=== PATIENT | male | born 1955 | race Caucasian/White ===

== ENCOUNTER 2016-05-31 20:44 | Emergency (ER) | payer SELFPAY ==
[2016-05-31 20:32] LABS: BASOPHIL# 0.1 X10e3 (0-0.3); BASOPHIL% 0.6 % (0-2.5); EOSINOPHIL# 0.2 X10e3 (0-0.7); EOSINOPHIL% 1.2 % (0.0-7.0); LYMPHOCYTE# 1.3 X10e3 (1.0-3.5); MEAN CELL VOLUME 98.9 FL (83-96); MEAN CORPUSCULAR HEMOGLOBIN 32.9 PG (28-34); MEAN CORPUSCULAR HGB CONC 33.3 g/dL (30-36); MONOCYTE# 0.8 X10e3 (0-1.0); NEUTROPHIL% 85.2 % (40-75); PLATELET COUNT 205 X10e3 (140-420); RED BLOOD COUNT 4.25 X10e (3.90-5.60); RED CELL DISTRIBUTION WIDTH 13.3 % (11.0-15.5); WHITE BLOOD COUNT 16.4 X10e3 (4.0-10.5)
[2016-05-31 20:35] LABS: DIFF IND YES
[~2016-05-31 20:44] MED LIST: ALBUTEROL17 GM; AMLODIPINE BESY10 MG PO; FLONASE 0.05% N16 G1; LISINOPRIL10 MG PO; OMEPRAZOLE40 MG PO; PEPCID AC20 M2 PO; ZOFRAN ODT4 MG PO; [UNRECOGNIZED DRUG - REMARK]
[2016-05-31 20:45] LABS: PLATELET ESTIMATE NORMAL (NORMAL); RBC NORMAL YES; TOXIC GRANULATION SL
[2016-05-31 20:49] LABS: ALBUMIN SERUM 4.3 g/dL (3.5-5.0); BILIRUBIN, DIRECT 0.1 mg/dL (0.0-0.2); BILIRUBIN,INDIRECT 0.6 mg/dL (0.0-0.9); BILIRUBIN,TOTAL 0.7 mg/dL (0.2-2.0); CALCIUM SERUM 8.7 mg/dL (8.4-10.2); CREATININE SERUM 0.8 mg/dL (0.6-1.4); GLOM FILT RATE Estimated 96.5 mL/min (>60); POTASSIUM 3.1 mmol/L (3.5-5.1); PROTEIN TOTAL SERUM 7.2 g/dL (6.0-8.3)
[2016-05-31 22:09] LABS: URINE SOURCE CLEAN CATCH
[2016-05-31 22:15] LABS: URINE APPEARANCE CLEAR; URINE BILIRUBIN NEG (NEG); URINE BLOOD NEG (NEG); URINE COLOR YELLOW; URINE GLUCOSE NEG (NEG); URINE KETONE TRACE (NEG); URINE LEUKOCYTE ESTERASE NEG (NEG); URINE NITRATE NEG (NEG); URINE PH 7.5 (5-8); URINE PROTEIN NEG (NEG); URINE SPECIFIC GRAVITY 1.009 (1.003-1.035); URINE UROBILINOGEN 0.2 MG/DL (NEG)
[2016-05-31 22:19] LABS: CULTURE INDICATED? NO
[2016-09-11] MEDS ORDERED: ALBUTEROL17 GM INH (07:59)
[2016-09-11] MEDS ORDERED: AMLODIPINE BES2.5 MG PO (10:40)
== END 2016-05-31 21:35 | disposition home or self-care (01) ==
LOC: CED 20:44
PROVIDERS: Emergency Medicine
DX: R11.2 Nausea with vomiting, unspecified (principal); R10.13 Epigastric pain; K59.00 Constipation, unspecified; I10 Essential (primary) hypertension; J44.9 Chronic obstructive pulmonary disease, unspecified; F17.210 Nicotine dependence, cigarettes, uncomplicated
CPT/HCPCS: 36415; 80048; 80076; 81003; 82150; 83690; 85025; 96374; 96375; 99284; J2405

== ENCOUNTER → 2016-09-11 | Day surgery (SDC) | payer BC ==
[~2016-09-11] MED LIST changes: +ALBUTEROL17 GM INH; +AMLODIPINE BES2.5 MG PO
--- NOTE | ~2016-09-11 | OR ---
Unit #: [id number] #: [id number] Patient: CORDELL FRAUSTO [id number] [address] [place], [place] [address] [id number] MR#: [id number] NAME: CORDELL FRAUSTO. ROOM: Date of Procedure: 09/11/2016 Admission Date: 09/11/2016 Surgeon: Kaushik Peoples M.D. : 1955 Attending Physician: Kaushik Peoples M.D. Primary Care Physician: Cosmo Rdz M.D. OPERATIVE REPORT PROCEDURES PERFORMED Colonoscopy with snare polypectomy. INDICATIONS FOR PROCEDURE Average risks for colorectal cancer. MEDICATIONS Monitored anesthesia. POSTOPERATIVE FINDINGS 1. Polyp, 5 mm rectum, snared and sent for histopathology. 2. Rest of the colon to cecum was normal. PLAN Repeat colonoscopy in 5 years if adenomatous. DESCRIPTION OF PROCEDURE The patient was explained of the procedure, risks, and benefits along with the risks and benefits of anesthesia. He was brought to the endoscopy room. Propofol anesthesia was given. Rectal exam was done, which was normal. Colonoscope was lubricated, passed up the rectum, advanced under direct vision all the way to the cecum. Cecum was identified by ileocecal valve and appendiceal orifice. Careful examination was done. Polyp seen in rectum was snared and sent for histopathology. I retroflexed in the rectum, internal hemorrhoids noted. Gently, the scope was pulled out. He tolerated it well. Dictated by... Erik Linn/yaima TD: 09/11/2016 13:07 JOB #: [id number] Unit #: [id number] #: [id number] Patient: CORDELL FRAUSTO OPERATIVE REPORT Page 1 of 1 X Kaushik Peoples MD X PROCEDURE OPERATIVE NOTE
== END | disposition home or self-care (01) ==
LOC: COPS 08:24
DX: Z12.11 Encounter for screening for malignant neoplasm of colon (principal); K62.1 Rectal polyp; K64.8 Other hemorrhoids; I10 Essential (primary) hypertension; J45.909 Unspecified asthma, uncomplicated; Z87.19 Personal history of other diseases of the digestive system; Z88.0 Allergy status to penicillin; Z88.2 Allergy status to sulfonamides; Z91.030 Bee allergy status; Z79.899 Other long term (current) drug therapy; Z98.890 Other specified postprocedural states
CPT/HCPCS: 88305; J2250